=== PATIENT | male | born 1990 | race Caucasian/White ===

== ENCOUNTER 2018-12-01 17:20 | Emergency (ER) | payer MEDICAID, OTHER ==
[2018-12-01 17:34] VITALS: RESP 18
--- NOTE | 2018-12-01 17:40 | C.PDOC ---
History Of Present Illness 27 y/o male, with no significant PMhx, presents to the ER complaining of bilateral lower back pain which began 2 days ago. Patient states that the pain began after he started a new job. 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 He notes that the pain is worse when he moves his lower back. He took Tylenol without relief at home. He denies any recent sexual activity. No penile pain or testicular pain. Denies having falls, trauma, dysuria, hematuria, enuresis, encopresis, penile discharge, testicular pain, abdominal pain, loss of sensation in legs, or history of kidney stones. Time Seen by Provider: 12/01/18 17:40 Chief Complaint (Nursing): Back Pain History Per: Patient History/Exam Limitations: no limitations Onset/Duration Of Symptoms: Days Current Symptoms Are (Timing): Still Present Severity: Moderate Past Medical History Reviewed: Historical Data, Nursing Documentation, Vital Signs Vital Signs: Last Vital Signs Temp 98.5 F 12/01/18 17:32 Pulse 84 12/01/18 17:32 Resp 18 12/01/18 17:32 BP 116/76 12/01/18 17:32 Pulse Ox 98 12/01/18 17:32 Primary Care Provider: Non [facility] Provider, - Medical History PMH: No Chronic Diseases Surgical History: No Surg Hx Family History: States: No Known Family Hx - Social History Hx Tobacco Use: No Hx Alcohol Use: Yes Hx Substance Use: No - Immunization History Hx Tetanus Toxoid Vaccination: No Hx Influenza Vaccination: No Hx Pneumococcal Vaccination: No Review Of Systems Constitutional: Negative for: Fever Eyes: Negative for: Pain ENT: Negative for: Ear Pain, Mouth Pain, Throat Pain Cardiovascular: Negative for: Chest Pain Respiratory: Negative for: Cough, Shortness of Breath Gastrointestinal: Negative for: Abdominal Pain Genitourinary: Negative for: Dysuria, Hematuria, Penile Discharge, Scrotal Pain, Rash, Penile Pain Musculoskeletal: Positive for: Back Pain. Negative for: Neck Pain, Shoulder Pain, Arm Pain, Hand Pain, Leg Pain, Foot Pain Neurological: Negative for: Weakness, Headache Physical Exam - Physical Exam Appears: Well, Non-toxic, No Acute Distress Skin: Normal Color, Warm, Dry Head: Atraumatic, Normacephalic Eye(s): bilateral: Normal Inspection, PERRL, EOMI Nose: Normal Oral Mucosa: Moist Throat: Normal, No Erythema, No Exudate, No Drooling, No Mass Neck: Normal, Normal ROM, Supple, Other (no meningeal signs) Chest: Symmetrical Cardiovascular: Rhythm Regular Respiratory: Normal Breath Sounds, No Rales, No Rhonchi, No Wheezing Gastrointestinal/Abdominal: Normal Exam, Soft, No Tenderness, No Mass, No Distention, No Guarding, No Rebound Back: No CVA Tenderness, No Vertebral Tenderness, No Decreased ROM, Paraspinal Tenderness (L3-L4 paraspinal tenderness) Extremity: Normal ROM, No Tenderness Extremity: Bilateral: Atraumatic Pulses: Left Dorsalis Pedis: Normal, Right Dorsalis Pedis: Normal Neurological/Psych: Oriented x3, Normal Speech, Normal Cognition, No Cerebellar Signs, Normal Motor, Normal Sensation Gait: Steady ED Course And Treatment O2 Sat by Pulse Oximetry: 98 (RA) Pulse Ox Interpretation: Normal - Other Rad X-[id number]-[id number] Spine X-Ray: Viewed By Me, Read By Radiologist Interpretation: Date of service: 12/01/2018. PROCEDURE: Radiographs of the Lumbar Spine. Three views. HISTORY: back pain b/l. COMPARISON: None available. FINDINGS: BONES: Alignment appears satisfactory. No listhesis. No acute displaced fracture identified. DISC SPACES: Unremarkable. OTHER FINDINGS: None. IMPRESSION: No acute displaced fracture or subluxation id entified. Medical Decision Making Medical Decision Makin27 y/o male,with no significant PMhx, presents to the ER complaining of bilateral lower back pain which began 2 days ago. No urinary complaints or midline back pain. No fall or trauma. No headache or neck pain. No chest pain or shortness of breath. No abdominal pain. He denies any penile d/c or rashes. No enuresis / encoparesis or saddle anesthesia. No hx of IVDU or DM2. Denies any high risk sexual activity and notes only sex with condoms. Impression: Lumbar Strain Plan: --Flexeril PO --Motrin PO --[id number] Spine 1848 pt endorsed improved pain, ambulating in NAD. now notes increased mild urinary frequency but no dysuria: requesting UA No CVAT on exam 2026 UA unremarkble pain improved, clear for d/c home with return indications and f/u. Pt agreeable to plan. endorsed to pt need to f/u w/ urologist and orthopedics given hematuria and back pain. Remains w/ out any kidney stone type pain. No sharp stabbing pain or radiating pain. Remains w/ out cauda equina signs. Also given instructions regarding caution with flexiril Disposition - Disposition Referrals: Darrell Almonte MD [Staff Provider] - [facility] [Outside] [facility] [Outside] [facility] [Outside] Mary Jules MD [Staff Provider] - Disposition Time: 20:28 Condition: STABLE Prescriptions: Cyclobenzaprine [Flexeril] 5 mg PO Q24H PRN 2 Days #2 tab PRN Reason: Pain, Moderate (4-7) Instructions: Lumbar Muscle Strain (DC) Forms: Goshi (Sammarinese), Goshi (Belarusian), Work Excuse Print Language: IRISH - Clinical Impression Clinical Impression: Low back pain, Low back strain, Urinary frequency - Scribe Statement The provider has reviewed the documentation as recorded by the Gavi Fuentes Provider Attestation: All medical record entries made by the Gavi were at my direction and personally dictated by me. I have reviewed the chart and agree that the record accurately reflects my personal performance of the history, physical exam, medical decision making, and the department course for this patient. I have also personally directed, reviewed, and agree with the discharge instructions and disposition.
--- NOTE | 2018-12-01 18:28 | RAD ---
Date of service: 12/01/2018 PROCEDURE: Radiographs of the Lumbar Spine. Three views. HISTORY: back pain b/l COMPARISON: None available. FINDINGS: BONES: Alignment appears satisfactory. No listhesis. No acute displaced fracture identified. DISC SPACES: Unremarkable. OTHER FINDINGS: None. IMPRESSION: No acute displaced fracture or subluxation identified.
[2018-12-01 20:09] LABS: SQUAMOUS EPITHIAL < 1 /hpf (0-5); URINE BACTERIA RARE (<OCC); URINE BILIRUBIN NEGATIVE (NEGATIVE); URINE BLOOD NEGATIVE (NEGATIVE); URINE CLARITY Clear (Clear); URINE COLOR Straw (YELLOW); URINE GLUCOSE (UA) NORMAL (Normal); URINE LEUKOCYTE ESTERASE NEG Leu/uL (Negative); URINE PROTEIN NEGATIVE (NEGATIVE); URINE UROBILINOGEN NORMAL mg/dL (0.2-1.0)
[2018-12-01 20:50] VITALS: BP 124/78; PULSE 88; TEMP 98.4; O2SAT 97
== END 2018-12-01 20:48 | disposition home or self-care (01) ==
LOC: C.ER 17:20
DX: S39.012A Strain of muscle, fascia and tendon of lower back, initial encounter (principal); X50.9XXA Other and unspecified overexertion or strenuous movements or postures, initial encounter; Y99.0 Civilian activity done for income or pay; R35.0 Frequency of micturition; M54.5 Low back pain